=== PATIENT | female | born 1950 | race Caucasian/White ===

== ENCOUNTER → 2016-11-28 | Outpatient (CLI) | payer BC ==
[~2016-11-28] MED LIST: ASPIRIN81 M1 PO; CALCIUM + D 6001 TA1 PO; CALCIUM 600 +1 EAC3 PO; CIPRO PO; ECOTRIN81 M1 PO; FLEXERIL10 MG PO; GLUCOPHAGE XR500 MG PO; GLYBURIDE PO; LASIX PO; LEVOXYL125 MC1 PO; LOTREL 5/10 MG1 CAP PO; METFORMIN HCL500 M2 PO; MICRONASE5 M1 PO; PRAVASTATIN SOD40 MG PO; PRILOSEC PO; SYNTHROID125 PO; VOLTAREN75 MG PO; ZOCOR80 MG PO
--- NOTE | ~2016-11-28 | MY9 ---
[facility] RADIOLOGY TEXT RESULTS PATIENT: RAKESH CRABTREE LOCATION: [facility] : 54 UNIT #: [id number] AGE: [address]: Catalina Morales APRN SEX: F ORDER DR: [id number] [facility] [address] [place], [place] [address] [id number] O MR#: [id number] Acc #: [id number] NAME: RAKESH CRABTREE : 1950 SEX: F STUDY DATE/TIME: 11/28/2016 11:18 UNIT: [facility] ROOM: STUDY DESCRIPTION: MY Mammogram Screen Uni Dig Lt Attending Physician: Catalina Morales A.P.R.N. Ordering Physician: Catalina Morales A.P.R.N. Primary Care Physician: Catalina Morales A.P.R.N. MEDICAL IMAGING REPORT This report is preliminary unless electronic signature is present EXAM Unilateral left digital screening mammogram, 11/28/2016 HISTORY 66-year-old woman with previous right mastectomy with adjuvant radiation therapy. Known sebaceous cyst upper inner left breast location. Annual screening. COMPARISON Mammograms date to 06/21/2006 with most recent 09/05/2015. FINDINGS Digital imaging of the left breast was completed utilizing screening protocol. Review includes FDA-approved CAD device. Subareolar duct prominence and subareolar nodularity is present. Subtle architectural distortion deep to the left nipple corresponds to a biopsy skin marker. I see no suspicious mass characteristics. There are no interval occurring microcalcifications. Small sebaceous cyst visible inner hemisphere left breast close to the chest wall. IMPRESSION Stable unilateral benign left mammogram. Status post right mastectomy. Annual screening recommended. Patients over the age of 40 are entered into a reminder system with target due date for the next mammogram. A result letter will also be sent to the patient. BIRADS: 2 Benign Finding Dictated by... Andres Cuellar M.D. [facility] RADIOLOGY TEXT RESULTS PATIENT: RAKESH CRABTREE LOCATION: [facility] : 54 UNIT #: [id number] AGE: [address]: Catalina Morales APRN SEX: F ORDER DR: THIS IS AN ELECTRONICALLY VERIFIED REPORT Andres Cuellar M.D. at 11/28/2016 1:59 PM Twan TD: 11/28/2016 12:57 JOB #: [id number] MEDICAL IMAGING REPORT Page 1 of 1 COPY
== END | disposition home or self-care (01) ==
LOC: CMAM 10:44
DX: Z12.31 Encounter for screening mammogram for malignant neoplasm of breast (principal); Z85.3 Personal history of malignant neoplasm of breast; Z90.11 Acquired absence of right breast and nipple
CPT/HCPCS: G0202